=== PATIENT | female | born 1955 | race Caucasian/White ===

== ENCOUNTER → 2017-04-17 | Outpatient (CLI) | payer OTHER | LOC: FIMAGING 11:38 | PROVIDERS: ATTEND Internal Medicine Endocrinology, Diabetes & Metabolism | DX: D35.1 Benign neoplasm of parathyroid gland (principal); E21.3 Hyperparathyroidism, unspecified; Z98.890 Other specified postprocedural states | CPT/HCPCS: A9500 ==

== ENCOUNTER → 2017-05-14 | Outpatient (CLI) | payer OTHER | LOC: FIMAGING 12:49 | PROVIDERS: ATTEND Surgery | DX: D35.1 Benign neoplasm of parathyroid gland (principal) ==

== ENCOUNTER 2018-09-20 05:52 | Observation (INO) | payer OTHER ==
[2018-09-20] MEDS ORDERED: LR 1,000 ML IV ONE (06:04)
[2018-09-20] MEDS ORDERED: ceFAZolin 2 GM/DEXTROSE 100 ML IV ONE (06:04)
[2018-09-20] MEDS ORDERED: LIDOCAINE 1% 2 ML INJ ID PRN (06:04)
[2018-09-20] MEDS ORDERED: BUPIVACAINE 0.25% 30 ML SDV ONE (06:35)
--- NOTE | 2018-09-20 07:00 | PDHPUP ---
History & Physical Update H&P update statement: This history and physical update is based on an assessment of the patient which was completed after admission or registration (within 24 hours), but prior to the surgery/procedure. H&P update: H&P reviewed & patient examined, no change in patient's condition since H&P completed
[2018-09-20] MEDS ORDERED: MIDAZOLAM 2 MG/2 ML VIAL IVP ONE (07:15)
[2018-09-20] MEDS ORDERED: SCOPOLAMINE HYDROBROMIDE 1 MG/3 DAYS PATCH TD SCH (07:15)
--- NOTE | 2018-09-20 07:16 | PDANEPAE ---
ANE History of Present Illness Hyperparathyroid ANE Past Medical History - Cardiovascular History Hx Hypertension: Yes Hx Arrhythmias: No Hx Chest Pain: No Hx Coronary Artery / Peripheral Vascular Disease: No Hx CHF / Valvular Disease: No Hx Palpitations: No Cardiovascular History Comment: pcp monitors bp medications - Pulmonary History Hx COPD: No Hx Asthma/Reactive Airway Disease: No Hx Recent Upper Respiratory Infection: No Hx Oxygen in Use at Home: No Hx Sleep Apnea: No Sleep Apnea Screening Result - Last Documented: Negative - Neurologic History Hx Cerebrovascular Accident: No Hx Seizures: No Hx Dementia: No Neurologic History Comment: TIA's 2014 - Endocrine History Hx Diabetes: No Endocrine History Comment: hypothyroidism - Renal History Hx Renal Disorders: No - Liver History Hx Hepatic Disorders: No - Neurological & Psychiatric Hx Hx Neurological and Psychiatric Disorders: No - Cancer History Hx Cancer: Yes Cancer History Comment: breast cancer- chemo 2000 - Congenital Disorder History Hx Congenital Disorders: No - GI History GERD: mild Hx Gastrointestinal Disorders: No - Other Health History Other Health History: wears glasses. [place]. post [place]/hot flashes. DVT 2016 - Chronic Pain History Chronic Pain: No - Surgical History Prior Surgeries: thyroid surgery. double mastectomy. left carpal tunnel surgery. javier Wren 10/29/12. fx ankle repair 2016 ANE Review of Systems Review of systems is: negative Review of Systems: - Exercise capacity METS (RN): 4 METS ANE Patient History - Allergies Allergies/Adverse Reactions: clarithromycin Allergy (Intermediate, Verified 09/04/18 11:59) Hives COMTREX Allergy (Severe, Uncoded 09/04/18 11:59) EYE SWELLING HAYFEVER Allergy (Mild, Uncoded 09/04/18 11:59) NASAL CONGESTION ANTIHSTAMINES Allergy (Uncoded 09/04/18 11:59) Itching - Home Medications Home Medications: Cholecalciferol Vit D3 [Vitamin D3 (*)] 2,000 units PO DAILY 06/25/17 [Last Taken 09/13/18] Herbals/Supplements -Info Only 1 ea PO DAILY 06/25/17 [Last Taken 09/13/18] Levothyroxine [Synthroid 150 mcg (*)] 150 mcg PO DAILY06 06/25/17 [Last Taken ] Rivaroxaban [Xarelto] 20 mg PO HS 06/25/17 [Last Taken 09/15/18] Zolpidem Tartrate [Ambien 10 mg] 5 mg PO HS PRN 06/25/17 [Last Taken 09/13/18] Acetaminophen [Tylenol 325mg (*)] 325 mg PO DAILY PRN 08/28/18 [Last Taken 09/19] Fexofenadine HCl [Donita Allergy] 180 mg PO DAILY PRN 08/28/18 [Last Taken ] Lisinopril [Zestril 10 mg (*)] 10 mg PO DAILY 08/28/18 [Last Taken 09/19/18] Guaifenesin 09/04/18 [Last Taken 09/19/18] - NPO status NPO Since - Liquids (Date): 09/19/18 NPO Since - Liquids (Time): 23:00 NPO Since - Solids (Date): 09/19/18 NPO Since - Solids (Time): 18:30 - Smoking Hx Smoking Status: Never smoked - Family Anes Hx Family Hx Anesthesia Complications: None ANE Labs/Vital Signs - Vital Signs Blood Pressure: 143/73 Heart Rate: 77 Respiratory Rate: 16 O2 Sat (%): 96 Height: 162.56 cm Weight: 74.843 kg ANE Physical Exam - Airway Neck exam: FROM Mallampati Score: Class 2 Mouth exam: normal dental/mouth exam - Pulmonary Pulmonary: no respiratory distress - Cardiovascular Cardiovascular: regular rate and rhythym, no murmur, rub, or gallop - ASA Status ASA Status: II ANE Anesthesia Plan Anesthesia Plan: general endotracheal anesthesia Total IV Anesthesia: Yes
[2018-09-20] MEDS ORDERED: MIDAZOLAM 2 MG/2 ML VIAL ONE (07:25)
[2018-09-20] MEDS ORDERED: PROPOFOL 200 MG/20 ML VIAL ONE (07:27)
[2018-09-20] MEDS ORDERED: PROPOFOL/EMULSION 500 MG/50 ML BOTTLE IV ONE ×2 (07:27→08:17)
[2018-09-20] MEDS ORDERED: fentaNYL 100 MCG/2 ML INJ ONE ×2 (07:27→08:17)
[2018-09-20] MEDS ORDERED: DEXMEDETOMIDINE HCL 400 MCG in NS 100 ML IV SCH (07:30)
[2018-09-20] MEDS ORDERED: DEXMEDETOMIDINE HCL 400 MCG in NS 100 ML IV ONE (07:30)
[2018-09-20] MEDS ORDERED: ONDANSETRON 4 MG/2 ML VIAL ONE ×2 (07:58→08:56)
[2018-09-20] MEDS ORDERED: DEXAMETHASONE 4 MG/ML VIAL ONE ×2 (07:58)
[2018-09-20] MEDS ORDERED: LIDOCAINE 2% 100 MG/5 ML SYR ONE (07:58)
[2018-09-20] MEDS ORDERED: LR 500 ML IV PRN (09:05)
[2018-09-20] MEDS ORDERED: NALOXONE HCL 0.4 MG/ML INJ IVP PRN (09:05)
[2018-09-20] MEDS ORDERED: PROMETHAZINE HCL 25 MG/ML INJ IVP PRN (09:05)
[2018-09-20] MEDS ORDERED: HYDROmorphONE/DILAUDID 2 MG/ML INJ IVP PRN (09:05)
[2018-09-20] MEDS ORDERED: fentaNYL 100 MCG/2 ML INJ IVP PRN (09:05)
[2018-09-20] MEDS ORDERED: ONDANSETRON 4 MG/2 ML VIAL IVP PRN ×2 (09:05→09:41)
--- NOTE | 2018-09-20 09:40 | POSTOPPROG ---
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
[2018-09-20] MEDS ORDERED: ACETAMINOPHEN 325 MG TAB PO PRN ×2 (09:45→16:50)
[2018-09-20] MEDS ORDERED: traMADol 50 MG TAB PO PRN (09:45)
[2018-09-20] MEDS ORDERED: ZOLPIDEM TARTRATE 5 MG TAB PO PRN (09:52)
--- NOTE | 2018-09-20 09:59 | POSTANESTH ---
Post Anesthetic Evaluation Cardiovascular Status: Similar to Pre-Op Cond Respiratory Status: Similar to Pre-op Cond. Level of Consciousness/Mental Status: Alert and Oriented Pain Control: Adequate, Prn Tx Ordered Nausea/Vomiting Control: Adequate, Prn Tx Ordered Complications Possibly Related to Anesthesia: None Noted
--- NOTE | 2018-09-20 11:53 | GOP ---
[f rep st] OPERATIVE REPORT DATE OF OPERATION: 09/20/2018 SURGEON: Placido Tolentino MD, FACS ANESTHESIA: General endotracheal. ANESTHESIOLOGIST: Shaquille Lutz M.D. PREOPERATIVE DIAGNOSIS: Hyperparathyroidism. POSTOPERATIVE DIAGNOSIS: Hyperparathyroidism. PROCEDURE PERFORMED: Parathyroidectomy. FINDINGS: 1687 mg left superior pole parathyroid adenoma, appropriate drop of PTH intraoperatively. ESTIMATED BLOOD LOSS: 5 mL. DESCRIPTION OF PROCEDURE: After informed consent was obtained, the patient was brought to the operating room and placed under general anesthesia. A gel pad was placed between the scapulae. Both arms were tucked. The neck was prepped and draped in the usual fashion. A Nims endotracheal tube was used for monitoring recurrent laryngeal nerve function intraoperatively. Before proceeding, a time-out and identification of the patient was performed. The prior thyroidectomy incision was infiltrated with 0.25% Marcaine and incised between the heads of the sternocleidomastoid muscle dissection was carried out through the subcutaneous tissues and platysma muscle and a plane of dissection elevated cephalad to the cricothyroid membrane and inferiorly to the suprasternal notch. The strap muscles were mobilized in the midline and the left thyroid was dissected with some scar tissue from her prior thyroidectomy which had included the isthmus and right lobe for benign disease in 1990. Rotating the gland medially, the superior pole vessels were tethering it. These were taken down using the Harmonic scalpel and hemoclips. The parathyroid adenoma came into view and was close to Collins's ligament. A plane of dissection was entered that allowed separation of the adenoma from the overlying thyroid gland. After its blood supply had been dispatched with a Harmonic scalpel, the gland was easily from the thyroid gland. It was removed from the field and submitted for frozen section as well as permanent section. Parathyroid hormone levels were obtained at 10 and 20 minutes after the gland was removed. While this was pending we dissected the neck further and identified the left inferior parathyroid gland which appeared normal, slightly inferior and posterior to this coursed the recurrent laryngeal nerve which was left undisturbed. Thyroid gland felt and appeared otherwise normal. The right side was not dissected. Parathyroid hormone levels came back showing a drop from the preoperative of 162 to 59.5 at 10 minutes and 37.9 at 20 minutes. The strap muscles were approximated in the midline with 3-0 Vicryl suture. Some of the subcutaneous fat was excised to allow for a more cosmetic closure. The platysma layer was closed with 3-0 Vicryl suture and the skin was closed with 4-0 Monocryl suture in a subcuticular fashion. Topical Dermabond was applied. Patient was returned, extubated to the recovery room in satisfactory condition. Needle, sponge, and instrument count were correct. STUDENT NURSE SURGEON: Alyssa Medina M.D. COMPLICATIONS: None. /[id number]/MODL MTDD
[2018-09-20] MEDS: HEPARIN 5,000 UNIT/0.5 ML INJ SC SCH ×2 (14:06→21:21)
[2018-09-20] MEDS: guaiFENesin 600 MG TAB.ER PO SCH ×2 (15:40→21:21)
[2018-09-20] MEDS: CALCIUM CARBONATE 500 MG CHEWABLE TAB PO SCH ×2 (16:36→21:21)
[2018-09-21] MEDS: HEPARIN 5,000 UNIT/0.5 ML INJ SC SCH ×2 (05:19→13:16)
[2018-09-21] MEDS ORDERED: LEVOTHYROXINE 150 MCG TAB PO SCH (06:00)
[2018-09-21] MEDS: CALCIUM CARBONATE 500 MG CHEWABLE TAB PO SCH (08:31)
[2018-09-21] MEDS: guaiFENesin 600 MG TAB.ER PO SCH (08:32)
[2018-09-21] MEDS ORDERED: LISINOPRIL 10 MG TAB PO SCH (09:00)
[2018-09-21] MEDS ORDERED: CALCITRIOL 0.25 MCG CAP PO SCH (09:00)
[2018-09-21] MEDS ORDERED: CETIRIZINE 10 MG TAB PO SCH (09:00)
[2018-09-21] MEDS ORDERED: PSEUDOEPHEDRINE HCL 30 MG TAB PO PRN (09:32)
[2018-09-21] MEDS ORDERED: AMOXICILLIN/CLAVULANATE POT 875/125 MG TAB PO SCH (09:45)
--- NOTE | 2018-09-21 10:04 | PDDCSUM ---
Discharge Summary Discharge Summary: #[id number] Summer Tolentino MD, FACS
--- NOTE | 2018-09-21 10:21 | GDS ---
[f rep st] DISCHARGE SUMMARY DISCHARGE DIAGNOSES: 1. Hyperparathyroidism. 2. History of deep venous thrombosis, on chronic anticoagulation. 3. Possible sinus infection. PROCEDURE PERFORMED: 09/20/2018 parathyroidectomy. HOSPITAL COURSE: For details of admission history and physical, please see dictated summary. Briefl y, the patient is a 63-year-old female admitted for elective parathyroidectomy. She has a history of prior DVT after an ankle fracture ORIF and has been on Xarelto for the past 18 months. This was dis continued prior to surgery. She underwent surgery on the day of admission. Was found to have a 1600 plus mg parathyroid adenoma in the left superior position. PTH levels came down appropriately intra operatively. Postoperatively, her calcium levels dropped to 9.3. She remained asymptomatic. She wa s started on calcitriol 0.25 mcg p.o. q. day and calcium carbonate 500 mg t.i.d. On the morning afte r surgery, patient had a low-grade fever, complained of headache and sinus congestion and reports thi s is how she feels when she gets a sinus infection. She was started on Sudafed and Augmentin to be c ontinued for 5 days. Her incision was healing well without sign of infection. She was advanced in h er diet and received perioperative heparin 5000 units q.8 hours starting within a couple of hours aft er surgery. She will resume Xarelto this evening and will receive her last dose of heparin at 2 in t he afternoon. CONDITION AT TIME OF DISCHARGE: Satisfactory. DISCHARGE MEDICATIONS: Include: Tylenol 650 mg q.6 hours p.r.n., calcitriol 0.25 mcg p.o. q. day, c alcium carbonate 500 mg p.o. t.i.d., Zyrtec 10 mg p.o. q. day, tramadol 50 mg p.o. q.6 hours p.r.n. p ain, Ambien 5 mg at q.h.s. p.r.n., Xarelto 20 mg p.o. q.h.s., Synthroid 150 mcg p.o. q. day, lisinopr il 10 mg p.o. q. day, Donita 180 mg p.o. q. day, and guaifenesin 600 mg p.o. b.i.d. Copy requested to: Dr. Jennifer Don /[id number]/MODL
[2018-09-21 11:29] VITALS: BP 120/64
== END 2018-09-21 13:43 | disposition home or self-care (01) ==
LOC: F3E 05:52
PROVIDERS: ADMIT Surgery; ATTEND Surgery
PROC: 0GTM0ZZ Resection of Left Superior Parathyroid Gland, Open Approach (ICD-10-PCS; principal; 2018-09-20 07:30)
DX: E21.3 Hyperparathyroidism, unspecified (principal); D35.1 Benign neoplasm of parathyroid gland; R09.81 Nasal congestion; R51 Headache; I10 Essential (primary) hypertension; E78.5 Hyperlipidemia, unspecified; E03.9 Hypothyroidism, unspecified; M81.0 Age-related osteoporosis without current pathological fracture; Z79.01 Long term (current) use of anticoagulants; Z86.718 Personal history of other venous thrombosis and embolism; Z86.73 Personal history of transient ischemic attack (TIA), and cerebral infarction without residual deficits; Z85.3 Personal history of malignant neoplasm of breast; Z87.81 Personal history of (healed) traumatic fracture; Z92.21 Personal history of antineoplastic chemotherapy; Z82.49 Family history of ischemic heart disease and other diseases of the circulatory system; Z90.13 Acquired absence of bilateral breasts and nipples
CPT/HCPCS: 60500; G0378; J0690; J1100; J1644; J2001; J2250; J2405; J2704; J3010